=== PATIENT | female | born 2000 | race African-American/Black ===

== ENCOUNTER → 2023-05-30 18:35 | Outpatient (CLI) | payer OTHER, SELFPAY ==
--- NOTE | 2023-05-30 | DI.MRI.S_ITS ---
PROCEDURE: MR CERVICAL SPINE WO CON INDICATIONS: INJURY TECHNIQUE: Noncontrast sagittal T1 spin echo and T2 fast spin echo, sagittal STIR, foraminal oblique sagittal T2 fast spin echo, and axial gradient echo or T2 fast spin echo through the cervical spine. COMPARISON: None. FINDINGS: Image quality: Excellent. Alignment and Curvature: Straightening of the normal lumbar lordosis. Bone Marrow: Marrow demonstrates normal overall signal. Spinal Cord: Visualized spinal cord has normal size and signal. No cerebellar tonsillar herniation. Paraspinous Soft Tissues: No paravertebral masses. Prevertebral soft tissues are normal in thickness. C2-C3: Normal appearance. C3-C4: Normal appearance. C4-C5: Normal appearance. C5-C6: Normal appearance. C6-C7: Normal appearance. C7-T1: Normal appearance. IMPRESSION: No acute traumatic findings. No significant degenerative changes. No central canal or neural foraminal stenosis. Dictated by: Rigoberto Velez M.D. on 05/31/2023 at 8:39 Approved by: Rigoberto Velez M.D. on 05/31/2023 at 8:41
--- NOTE | 2023-05-30 | DI.MRI.S_ITS ---
PROCEDURE: MR SHOULDER LT WO CON INDICATIONS: INJURY TECHNIQUE: Noncontrast oblique coronal T2 fast spin echo with fat saturation, oblique sagittal T1 spin echo and T2 fast spin echo with fat saturation, axial T1 spin echo and T2 fast spin echo with fat saturation through the shoulder. COMPARISON: None. FINDINGS: Image quality: Excellent. Rotator cuff: Low-grade articular and bursal surface partial thickness tear involving distal supraspinatus at its insertion on the humeral head is seen extending to musculotendinous junction. Low-grade articular surface partial-thickness tear involving distal infraspinatus at its insertion on humeral head is also noted. No full-thickness rotator cuff tendon rupture. Sagittal images demonstrate no significant rotator cuff muscle atrophy. Bones and bursae: No bone marrow contusions or fractures. No acromioclavicular joint degeneration. The acromion demonstrates conventional anatomy, without an os acromiale. No pathologic subacromial-subdeltoid or subcoracoid bursal fluid is present. Capsule and soft tissues: Labrum is grossly intact. The long head of the biceps tendon demonstrates normal location and morphology. The rotator interval appears normal, without fibrosis. The coracohumeral ligament is normal in thickness. IMPRESSION: 1. Low-grade articular and bursal surface partial thickness tear involving distal supraspinatus extending to musculotendinous junction. Low-grade articular surface partial-thickness tear involving distal infraspinatus. No full-thickness rotator cuff tendon rupture. 2. No marrow edema. No fracture or dislocation. No significant joint effusion or subacromial subdeltoid bursal fluid. 3. No evidence of focal labral tear. Dictated by: Bradley Dupont M.D. on 05/31/2023 at 9:42 Approved by: Bradley Dupont M.D. on 05/31/2023 at 9:44
== END ==
DX: M75.112 Incomplete rotator cuff tear or rupture of left shoulder, not specified as traumatic (principal); M25.512 Pain in left shoulder
CPT/HCPCS: 72141; 73221

== ENCOUNTER → 2023-07-04 | Outpatient (CLI) | payer OTHER, SELFPAY ==
--- NOTE | 2023-07-04 13:26 | DI.RAD.S_ITS ---
PROCEDURE: FL SHOULDER INJECTION MR/CT RT INDICATIONS: RIGHT SHOULDER PAIN COMPARISON: [facility], MR, MR SHOULDER RT W CON, 07/04/2023, 13:52. TECHNIQUE: The indications, alternatives, benefits, risks, and complications of the procedure were explained to the patient. Written informed consent was obtained and placed in the chart. The shoulder was examined fluoroscopically and a site for needle placement chosen for entry into the glenohumeral joint from an anterior approach. The skin was prepped and draped in a sterile fashion, and 1% lidocaine infiltrated from skin down to joint capsule. A spinal needle was inserted into the glenohumeral joint, and a small amount of iodinated contrast media injected to confirm intra-articular placement of the needle tip. This was followed by approximately 12 mL dilute solution of a gadolinium containing MR contrast agent. The needle was removed and a dressing was applied. The patient was given postprocedural instructions and sent to the MR suite for MR imaging. FINDINGS: A single fluoroscopic spot image demonstrates intra-articular location of injected iodinated contrast. IMPRESSION: Successful fluoroscopically guided administration of dilute Gadolinium solution into the shoulder joint for MR arthrogram. Dictated by: Scotty Juarez M.D. on 07/04/2023 at 16:44 Approved by: Scotty Juarez M.D. on 07/04/2023 at 16:48
--- NOTE | 2023-07-04 13:26 | DI.MRI.S_ITS ---
PROCEDURE: MR SHOULDER RT W CON INDICATIONS: RIGHT SHOULDER PAIN TECHNIQUE: After the administration of 12 mL of dilute intra-articular Gadolinium contrast, oblique coronal T1 and T2 spin echo with fat saturation, oblique sagittal T1 spin echo with and without fat saturation, oblique sagittal T2 fast spin echo with fat saturation, axial T1 spin echo with fat saturation through the shoulder. COMPARISON: None. FINDINGS: Image quality: Excellent. Rotator cuff: Low-grade articular surface partial-thickness tear involving distal supraspinatus at its insertion on the humeral head is seen extending to musculotendinous junction. Distal infraspinatus and subscapularis tendons are intact. No full-thickness rotator cuff tendon rupture. No rotator cuff muscle atrophy on sagittal images. Bones and bursae: Shallow chronic appearing Hill-Sachs deformity is seen. No Bankart fracture. No marrow edema. No dislocation. No acromioclavicular joint degeneration. The acromion demonstrates conventional anatomy, without an os acromiale. Capsule and soft tissues: Contour deformity involving posterior inferior labrum with contrast extension is seen at 6 to 7 o'clock position concerning for posterior inferior labral tear. The glenohumeral ligaments appear intact. The long head of the biceps tendon demonstrates normal location and morphology. The rotator interval appears normal, without fibrosis. The coracohumeral ligament is of normal thickness. No intra-articular bodies. IMPRESSION: 1. Shallow Hill-Sachs deformity involving posterior lateral humeral head. No marrow edema. No acute fracture or dislocation. No gross intra-articular loose bodies. 2. Suggestion of subtle posterior inferior labral tear at 6 to 7 o'clock position. 3. Low-grade articular surface partial-thickness tear involving distal supraspinatus extending to musculotendinous junction. Dictated by: Bradley Dupont M.D. on 07/04/2023 at 15:50 Approved by: Bradley Dupont M.D. on 07/04/2023 at 15:53
[2023-07-04] MEDS: LIDOCAINE 1% 20 ML INJ (14:41)
[2023-07-04] MEDS: SODIUM CHLORIDE 0.9 % 20 ML VIAL IV (14:41)
== END ==
LOC: RAD 13:23
PROVIDERS: Referring Provider Orthopaedic Surgery; Visit Provider Orthopaedic Surgery
DX: M25.311 Other instability, right shoulder (principal); M75.111 Incomplete rotator cuff tear or rupture of right shoulder, not specified as traumatic
CPT/HCPCS: 23350; 73222; 77002; A9579; Q9967

== ENCOUNTER → 2023-07-15 | Outpatient (CLI) | payer OTHER, SELFPAY ==
--- NOTE | 2023-07-15 11:03 | DI.RAD.S_ITS ---
PROCEDURE: FL SHOULDER INJECTION MR/CT LT INDICATIONS: LEFT SHOULDER INSTABILITY COMPARISON: [facility], MR, MR SHOULDER LT WO CON, 05/30/2023, 19:26. TECHNIQUE: The indications, alternatives, benefits, risks, and complications of the procedure were explained to the patient. Written informed consent was obtained and placed in the chart. The shoulder was examined fluoroscopically and a site for needle placement chosen for entry into the glenohumeral joint from an anterior approach. The skin was prepped and draped in a sterile fashion, and 1% lidocaine infiltrated from skin down to joint capsule. A spinal needle was inserted into the glenohumeral joint, and a small amount of iodinated contrast media injected to confirm intra-articular placement of the needle tip. This was followed by approximately 12 mL dilute solution of a gadolinium containing MR contrast agent. The needle was removed and a dressing was applied. The patient was given postprocedural instructions and sent to the MR suite for MR imaging. FINDINGS: A single fluoroscopic spot image demonstrates intra-articular location of injected iodinated contrast. IMPRESSION: Successful fluoroscopically guided administration of dilute Gadolinium solution into the shoulder joint for MR arthrogram. Dictated by: Aguila Rowell M.D. on 07/15/2023 at 12:49 Approved by: Aguila Rowell M.D. on 07/15/2023 at 12:50
--- NOTE | 2023-07-15 11:03 | DI.MRI.S_ITS ---
PROCEDURE: MR SHOULDER LT W CON INDICATIONS: LEFT SHOULDER INSTABILITY TECHNIQUE: After the administration of 12 mL of dilute intra-articular Gadolinium contrast, oblique coronal T1 and T2 spin echo with fat saturation, oblique sagittal T1 spin echo with and without fat saturation, oblique sagittal T2 fast spin echo with fat saturation, axial T1 spin echo with fat saturation through the shoulder. COMPARISON: [facility], RF, FL SHOULDER INJECTION MR/CT LT, 07/15/2023, 10:39. [facility], MR, MR SHOULDER RT W CON, 07/04/2023, 13:52. FINDINGS: Image quality: Excellent. Rotator cuff: Distal supraspinatus and infraspinatus tendinosis is seen. No full-thickness rotator cuff tendon rupture. The subscapularis tendon is intact. No rotator cuff muscle atrophy on sagittal images. Bones and bursae: No bone marrow contusions or fractures. No acromioclavicular joint degeneration. The acromion demonstrates conventional anatomy, without an os acromiale. Capsule and soft tissues: The labrum and glenohumeral ligaments appear intact. The long head of the biceps tendon demonstrates normal location and morphology. The rotator interval appears normal, without fibrosis. The coracohumeral ligament is of normal thickness. No intra-articular bodies. IMPRESSION: 1. Mild distal supraspinatus and infraspinatus tendinosis. No rotator cuff tendon rupture. No muscle atrophy. 2. No marrow edema. No acute fracture or dislocation. No definite Hill-Sachs deformity or Bankart fracture is seen. No intra-articular loose bodies. 3. No evidence of focal labral tear. Dictated by: Bradley Dupont M.D. on 07/15/2023 at 16:21 Approved by: Bradley Dupont M.D. on 07/15/2023 at 16:33
[2023-07-15] MEDS: LIDOCAINE 1% 20 ML INJ (12:03)
[2023-07-15] MEDS: SODIUM CHLORIDE 0.9 % 20 ML VIAL IV (12:03)
== END ==
LOC: RAD 11:03
PROVIDERS: Referring Provider Orthopaedic Surgery; Visit Provider Orthopaedic Surgery
DX: M25.312 Other instability, left shoulder (principal)
CPT/HCPCS: 23350; 73040; 73222; 77002; A9579

== ENCOUNTER 2023-10-17 21:31 | Emergency (ER) | payer OTHER, SELFPAY ==
[2023-10-17 21:46] VITALS: BP 124/81; PULSE 94; RESP 12; TEMP 36.6; O2SAT 100; BMI 24.9
--- NOTE | 2023-10-17 21:49 | DI.RAD.S_ITS ---
PROCEDURE: XR ACUTE ABDOMEN SERIES INDICATIONS: no BM for three weeks TECHNIQUE: One view chest and two views of the abdomen were acquired. COMPARISON: None. FINDINGS: Surgical changes and devices: None. Chest: Lungs are clear. Heart size is normal. No pleural effusions. No pneumoperitoneum. Abdomen: Bowel gas pattern is nonobstructive. Mild fecal stasis throughout the colon is seen. No suspicious calcifications. Visualized solid organ contours appear normal. Bones: No suspicious bony lesions. IMPRESSION: No acute cardiopulmonary pathology. Mild constipation. No gross free air. Dictated by: Bradley Dupont M.D. on 10/17/2023 at 22:28 Approved by: Bradley Dupont M.D. on 10/17/2023 at 22:30
--- NOTE | 2023-10-17 21:56 | PC.NURSE ---
Patient states no chance of , ended period on about 10 days ago.
[2023-10-17 23:52] VITALS: BP 102/58; PULSE 90; RESP 16; TEMP 37; O2SAT 100
--- NOTE | 2023-10-18 01:07 | ED.ABDPAIN ---
HPI - Abdominal Pain General Chief Complaint: Abdominal Pain Stated Complaint: no bm x 2 weeks Time Seen by Provider: 10/18/23 00:51 Source: patient Mode of arrival: Ambulatory History of Present Illness HPI narrative: 22-year-old female had recent right shoulder labrum tear surgery by orthopedic surgery on 09/26/23, was taking opiate postoperative pain medication, now having difficulty with suspected constipation, some crampy abdominal discomfort, last bowel movement she feels was 2 weeks ago, although she has been passing gas, denies abdominal distention, has tried [id number] MiraLax, has tried [id number] magnesium citrate. No enemas dried. No history of abdominal pelvic surgeries. No fevers or chills. No pain on urination, no change in urine, no flank pain. Related Data Previous Rx's Medication Instructions Recorded lactulose 20 gram/30 mL oral 20 g (30 mL) PO BID #300 mL 10/18/23 solution Allergies Allergy/AdvReac Type Severity Reaction Status Date / Time No Known Drug Allergies Allergy Unverified 10/17/23 21:48 Review of Systems Review of Systems Narrative: per HPI Patient History Social History Smoking Status: Never smoker Smoking Status: Never smoker Substance Use Type: does not use Exam Narrative Exam Narrative: GENERAL: Well-developed patient, in mild distress. HEAD: Atraumatic. Normocephalic. EYES: Pupils equal round and reactive. Extraocular motions intact. No scleral icterus. No injection or drainage. ENT: Nose without bleeding, purulent drainage. Throat without erythema, tonsillar hypertrophy or exudate. Airway patent. NECK: Trachea midline. Non tender CARDIOVASCULAR: Regular rate and rhythm without murmurs, gallops, or rubs. RESPIRATORY: Clear to auscultation. Breath sounds equal bilaterally. No wheezes, rales, or rhonchi. GASTROINTESTINAL: Abdomen soft, non-tender, nondistended. EXTREMITIES: No edema or joint tenderness. Right arm postoperative sling noted, good cap refill and finger motion BACK: Nontender without deformity or crepitance. No flank tenderness. NEURO: AOx3. SKIN: No rash or erythema of visible areas Initial Vital Signs Initial Vital Signs: Vital Signs Temperature 97.9 F 10/17/23 21:46 Pulse Rate 94 H 10/17/23 21:46 Respiratory Rate 12 06/27/24 21:46 Blood Pressure 124/81 10/17/23 21:46 Pulse Oximetry 100 10/17/23 21:46 Oxygen Delivery Method Room Air 10/17/23 21:46 Course Orders Ordered: Discontinued Medications Lactulose (Lactulose 20 Gm/30 Ml Solution) 20 gm PO NOW ONE Stop: 10/18/23 01:23 Last Admin: 10/18/23 01:32 Dose: 20 gm Documented By: DILMA Vital Signs Vital signs: Vital Signs - 8 hr 10/17/23 23:52 10/18/23 01:33 Temperature 98.6 F Pulse Rate 90 75 Respiratory Rate 16 16 Blood Pressure 102/58 L 94/50 L Pulse Oximetry 100 100 Oxygen Delivery Method Room Air MDM - Abdominal Pain MDM Narrative Medical decision making narrative: 22-year-old female status post recent right shoulder surgery, postop opiate analgesics, now with constipation symptoms, benign exam, afebrile, sirs screen negative, screening x-ray done at triage shows constipation changes, no bowel obstruction changes. She had been trying magnesium citrate, had been trying MiraLax, consider trial of lactulose. We will give dose now touch she can take when she is at home, then send prescription for further doses to use as needed to her pharmacy. No further workup for now, patient agreeable to this approach. Return precautions discussed Discharge Plan Departure Patient Disposition: Home Clinical Impression: Abdominal pain, Constipation Activity Restrictions/Additional Instructions: Recent right shoulder surgery 09/26/2023, postoperative opiate pain medication prescribed, suspected constipation symptoms, not responsive so far to home use of [id number] MiraLax or magnesium citrate. Trial of lactulose discussed, 1st dose dispensed now to give once at home, prescription for further doses to use if needed. Follow up with your orthopedic surgeon as scheduled. Regarding your constipation symptoms, recheck with your regular provider if you are still having problems by Saturday. Return over the weekend earlier to this/nearest emergency department if any change or concerns prior Prescriptions: New lactulose 20 gram/30 mL solution 20 g PO BID Qty: 300 0RF Referrals: ProviderEmmett [Primary Care Provider] - Stand Alone Forms: Patient Portal/API
[2023-10-18] MEDS: LACTULOSE 20 GM/30 ML SOLUTION PO (01:32)
[2023-10-18 01:33] VITALS: BP 94/50; PULSE 75; RESP 16; O2SAT 100
== END 2023-10-18 01:36 | disposition home or self-care (01) ==
PROVIDERS: Emergency Provider Emergency Medicine
DX: K59.00 Constipation, unspecified (principal)
CPT/HCPCS: 74022; 99283